=== PATIENT | female | born 1995 | race Caucasian/White ===

== ENCOUNTER 2016-07-16 16:48 | Emergency (ER) | payer BC, OTHER ==
[2016-07-16] MEDS ORDERED: SODIUM CHLORIDE 0.9% 1000ML 1,000 ML IV STA (16:53)
--- NOTE | 2016-07-16 17:01 | EMERGENCY ROOM VISIT NOTE ---
History Report prepared by Branden: Christian Argueta Under the Supervision of: Dr. Jose Manuel Archer M.D. First contact with patient: 16:49 Chief Complaint: ALCOHOL OVERDOSE Stated Complaint: ETOH History of Present Illness The patient is a 21 year old female who presents to the Emergency Room with an acute alcohol overdose that occurred prior to arrival. Per EMS, the patient was drinking beer all day. She became highly intoxicated and was vomiting. The patient reportedly does not drink often. She denies pain. She denies any falls or other drug use. She denies any medical problems. IV established by EMS FLOOR TECH. Complete history is limited secondary to alcohol intoxication. Source of History: patient, EMS History Limited By: intoxication Onset: FLOOR TECH Position: other (global) Quality: other (alcohol intoxication) Timing: other (acute) Associated Symptoms: + vomiting, No abdominal pain Review of Systems ROS is limited secondary to alcohol intoxication. Past Medical & Surgical Medical Problems: (1) No known health problems Old medical records were reviewed. Nurse's notes were reviewed and I agree with. Family History Patient reports no known family medical history. Social History Alcohol Use: occasionally Occupation Status: [employer] Current/Historical Medications No Active Prescriptions or Reported Meds Allergies Uncoded Allergies: PENICILLIN (Allergy, Unknown, UNKNOWN, 07/16/16) Physical Exam Vital Signs Date Time Temp Pulse Resp B/P Pulse Ox O2 Delivery O2 Flow Rate FiO2 07/16/16 19:31 108 18 135/76 100 07/16/16 18:38 124 18 146/84 100 Room Air 07/16/16 17:03 62 07/16/16 16:51 83 16 99/59 98 Room Air Physical Exam General: Intoxicated young female, lying prone in bed, wakes to stimuli to answer questions but falls back asleep, eyes are bloodshot, smells of alcohol, denies any other complaints. HEENT: Normal cephalic atraumatic. Pupils are equal round and reactive to light. Extraocular movements are intact. Oropharynx is pink with moist mucous membranes. No swelling of the mouth lips or tongue. Neck: Supple with a midline trachea. No meningeal signs or stiffness, no JVD or bruits. No Stridor. Chest: Clear to auscultation bilaterally. No wheezes or rhonchi. No increased work of breathing. Heart: regular rate and rhythm. Abdomen: Soft nontender, nondistended without rebound guarding or rigidity. Extremities: No cyanosis clubbing or edema. No calf tenderness or assymetry Spine/Back. Non tender to palpation. No CVA tenderness Skin: Good turgor without rashes. Neurologic exam: Cranial nerves two through 12 are intact. Motor and sensation are intact and symmetrical throughout. Medical Decision & Procedures Laboratory Results Test 07/16/16 17:51 Ethyl Alcohol mg/dL 227.0 mg/dl (0-3) Laboratory studies as stated above per my review. Medications Administered Medications (Trade) Dose Ordered Sig/Ladi Route Start Time Stop Time Status Last Admin Dose Admin Sodium Chloride (Nss 1000ml) 1,000 ml @ 999 mls/hr Q1H1M STAT IV 07/16/16 16:53 07/16/16 17:53 DC 07/16/16 16:53 999 MLS/HR ED Course 1650: Past medical records reviewed. The patient was evaluated in room B12b, and a complete history and physical examination were performed. 1653: NSS 1000 ml @ 999 mls/hr. 1725: The patient is sound asleep. 1905: The patient has a sober ride to pick her up. 1914: Reassessed the patient. Discussed the discharge instructions with her. She verbalized understanding and agreement. The patient is ready for discharge. Medical Decision Differential diagnosis includes alcohol intoxication, overdose, electrolyte or metabolic abnormality. This patient comes in after being found intoxicated. She apparently has been vomiting as well. She is placed on bus driver/monitor and aspirations precautions were applied. She was placed in room B12. She denies any fall or congestion or any complaints. She denies any significant past medical history. EMS had established an IV and had drawn blood. I did give her 1 L IV normal saline bolus. Blood sugar was obtained in the field and was unremarkable. Alcohol level was obtained here. It was elevated at 227. She was observed for several hours and sobered up. Sober friends did come to get her as well as multiple family members. She denies any fall or trauma or coingestions or depression. She is feeling good and has no complaints upon reassessment. She will be discharged home and not drink anymore alcohol. Impression Primary Impression: Alcohol intoxication Scribe Attestation The scribe's documentation has been prepared under my direction and personally reviewed by me in its entirety. I confirm that the note above accurately reflects all work, treatment, procedures, and medical decision making performed by me. Departure Information Dispostion Home / Self-Care Prescriptions No Active Prescriptions or Reported Meds Forms HOME CARE DOCUMENTATION FORM, IMPORTANT VISIT INFORMATION Patient Instructions Alcohol Intoxication - [facility], My [facility] Additional Instructions Rest. Drink plenty of fluids. Do not drinking more alcohol. Return to the ER if: Worsening symptoms, any new problems or concerns. Follow up with her doctor this week
[2016-07-16 19:31] VITALS: BP 135/76; PULSE 108; O2SAT 100
== END 2016-07-16 19:31 | disposition home or self-care (01) ==
LOC: C.EDB 16:50
DX: F10.129 Alcohol abuse with intoxication, unspecified (principal); Y90.7 Blood alcohol level of 200-239 mg/100 ml; Z88.0 Allergy status to penicillin